=== PATIENT | female | born 1960 | race Hispanic/Latino ===

== ENCOUNTER 2019-04-11 17:43 | Emergency (ER) | payer MEDICARE ==
[~2019-04-11] VITALS: Ht 154.9 cm; Wt 55.0 kg
[~2019-04-11 17:43] MED LIST: AMMONIUM LAC12 % EX; ASA LO-DOSE81 MG OR; ASPIRIN LOW DOS81 MG PO; ATENOLOL50 MG PO; BABY ASPIRIN81 MG OR; CEPHALEXIN500 MG PO; CLONIDINE0.1 MG OR; CLONIDINE0.2 MG OR; CLOTRIMAZOLE13 EX; GABAPENTIN100 MG OR; HUMULIN 70/30 SC; HYDROCHLOROTH12.5 MG OR; HYDROXYZ HCL25 MG PO; HYZAAR1 TA1 OR; HYZAAR1 TAB PO; IBUPROFEN600 MG PO; LISINOPRIL5 MG PO; LOTRISONE CREAM15 G1 EX; METFORMIN500 MG PO; NAPROSYN500 MG OR; NAPROXEN DR500 MG OR; NITROSTAT0.4 MG SL; NOVOLIN R IJ; OMEPRAZOLE20 MG PO; ORPHENADRINE C100 MG PO; OXYCODONE30 MG OR; OXYCONTIN30 MG OR; PRAVACHOL20 MG PO; PRILOSEC20 MG/CAP PO; PROMETHAZINE12.5 MG PO; PROMETHAZINE25 M1 RE; SOMA350 MG OR; SOMA350 MG PO; SPIRONOLACT100 MG PO; TYLENOL500 MG OR; ZOFRAN ODT8 MG OR
[2019-04-11 18:19] LABS: HEMATOCRIT 37.7 % (37.0-47.0); HEMOGLOBIN 12.2 g/dl (12.0-16.0); IMMATURE GRANULOCYTES 0.3 % (0.0-5.0); MEAN CELL VOLUME 86.3 fL CALC (80.0-100.0); MEAN CORPUSCULAR HGB 27.9 pG CALC (26.0-32.0); MEAN CORPUSCULAR HGB CONC 32.4 g/L CALC (32.0-36.0); NEUT# 3.4 thou/uL (2.00-7.15); RED BLOOD COUNT 4.37 mill/uL (4.20-5.60); RED CELL DISTRI WIDTH 13.3 % (11.5-15.5)
[2019-04-11 18:34] LABS: ANION GAP 9 (6-22 (CALC)); BUN 15 mg/dL (7-17); BUN/CREATININE RATIO 36 (12-20 (CALC)); CARBON DIOXIDE 27 mmol/l (22-30); CHLORIDE 104 mmol/l (95-108); CREATININE 0.4 mg/dL (0.5-1.0); GFR > 60 ML/MIN (>=60 (CALC)); GFR FOR AFR.AMER. > 60 ML/MIN (>=60 (CALC)); POTASSIUM 3.4 mmol/l (3.5-5.1); SODIUM 137 mmol/l (137-146)
[2019-04-11 19:17] LABS: URINE BILIRUBIN - DIPSTICK NEGATIVE (NEGATIVE); URINE BLOOD DIPSTICK LARGE (NEGATIVE); URINE GLUCOSE - DIPSTICK NEGATIVE (NEGATIVE); URINE KETONE NEGATIVE (NEGATIVE); URINE LEUK ESTERASE NEGATIVE (NEGATIVE); URINE NITRITE - DIPSTICK NEGATIVE (Negative); URINE PROTEIN - DIPSTICK NEGATIVE (NEG-TRACE)
[2019-04-11 19:23] LABS: COCAINE NEGATIVE (NEGATIVE); TETRAHYDROCANNABIONOL NEGATIVE (NEGATIVE); URINE COLOR DK. YELLOW
[2019-04-11 19:24] LABS: BARBITURATES NEGATIVE (NEGATIVE); METHADONE NEGATIVE (NEGATIVE); TRICYLIC ANTIDEPRESSANTS NEGATIVE (NEGATIVE)
[2019-04-11 19:25] LABS: OXCYCODONE POSITIVE (NEGATIVE)
[2019-04-11 19:30] LABS: URINE RBC 25-50 RBC/hpf (0-5); URINE SQUAMOUS EPITHELIAL CELL FEW EPI/hpf (0-FEW)
[2019-04-11] MEDS ORDERED: OXYCODONE HCL15 MG PO (19:38)
[2019-04-11] MEDS ORDERED: PHENERGAN25 MG/TAB PO (19:40)
[2019-04-11] MEDS ORDERED: LASIX 40 MG40 MG/TAB PO (19:40)
[2019-04-11] MEDS ORDERED: METHIMAZOLE5 MG PO (19:41)
[2019-04-11] MEDS ORDERED: CYMBALTA30 MG PO (19:41)
[2019-04-11] MEDS ORDERED: TORADOL PO (21:14)
[2019-04-11 21:50] VITALS: BP 141/64
== END 2019-04-11 21:50 | disposition home or self-care (01) ==
LOC: ED 17:43
PROVIDERS: Family Medicine
DX: S82.142A Displaced bicondylar fracture of left tibia, initial encounter for closed fracture (principal); I10 Essential (primary) hypertension; E11.9 Type 2 diabetes mellitus without complications; W10.9XXA Fall (on) (from) unspecified stairs and steps, initial encounter; Y92.009 Unspecified place in unspecified non-institutional (private) residence as the place of occurrence of the external cause
CPT/HCPCS: L1830

== ENCOUNTER 2023-05-29 17:45 | Emergency (ER) | payer MEDICARE ==
[~2023-05-29] VITALS: Ht 154.9 cm; Wt 61.0 kg
[~2023-05-29 17:45] MED LIST changes: +CYMBALTA30 MG PO; +LASIX 40 MG40 MG/TAB PO; +METHIMAZOLE5 MG PO; +OXYCODONE HCL15 MG PO; +PHENERGAN25 MG/TAB PO; +TORADOL PO
[2023-05-29 17:51] VITALS: BP 191/127
[2023-05-29 18:01] VITALS: BP 161/72
[2023-05-29 19:01] VITALS: BP 167/78
[2023-05-29 20:01] VITALS: BP 169/76
[2023-05-29 20:30] VITALS: BP 169/76
== END 2023-05-29 20:50 | disposition home or self-care (01) ==
LOC: ED 17:45
DX: T17.328A Food in larynx causing other injury, initial encounter (principal); I10 Essential (primary) hypertension; E11.9 Type 2 diabetes mellitus without complications; B19.20 Unspecified viral hepatitis C without hepatic coma; X58.XXXA Exposure to other specified factors, initial encounter